=== PATIENT | male | born 1965 | race Caucasian/White ===

== ENCOUNTER 2016-12-12 12:50 | Emergency (ER) | payer BC ==
[2016-12-12 12:25] LABS: BASOPHILS 0.3 %; BASOPHILS ABSOLUTE 0.02 10/3/uL (0.0-0.16); EOSINOPHILS 0.9 %; EOSINOPHILS ABSOLUTE 0.07 10/3/uL (0.0-0.53); ER CBC TAT 0 Hrs 03 Mins; HEMATOCRIT 43.4 % (40.0-51.0); IMMATURE GRANULOCYTES 1.8 %; IMMATURE GRANULOCYTES ABSOLUTE 0.14 10/3/uL (0.0-0.11); LYMPHOCYTES 31.2 %; LYMPHOCYTES ABSOLUTE 2.45 10/3/uL (0.67-4.30); MEAN CORPUS HGB CONC 34.6 g/dL (32.0-36.0); MEAN CORPUSCULAR HEMOGLOB 30.7 pg (26.0-34.0); MEAN CORPUSCULAR VOLUME 88.8 fL (80-100); MEAN PLATELET VOLUME 9.2 fL (9.2-13.0); MONOCYTES 9.2 %; MONOCYTES ABSOLUTE 0.72 10/3/uL (0.21-1.20); NEUTROPHILS 56.6 %; NEUTROPHILS ABSOLUTE 4.45 10/3/uL (2.02-8.40); PLATELET COUNT 211 10/3/uL (150-400); RBC DISTRIBUTION WIDTH 12.5 % (12.0-16.0); RED CELL COUNT 4.89 10/6/uL (4.7-6.1); WHITE BLOOD CELLS 7.9 10/3/uL (4.5-10.5)
[2016-12-12 12:26] LABS: MANUAL DIFF NO %
[2016-12-12 12:29] LABS: ASCORBIC ACID (UR NOT ORDER) NEG (NEG); BILIRUBIN, URINE NEGATIVE (NEG); ER URINALYSIS TAT 0 Hrs 07 Mins; KETONE, URINE NEGATIVE (NEG); LEUKOCYTE ESTERASE(NOT OR NEG (NEG); NITRITE (URINE) NEG (NEG); WBC (NOT ORDERED) (RFLEX) < 1 (0-5)
[2016-12-12 12:41] LABS: A/G RATIO 1.2 (0.7-1.9); ALBUMIN 3.7 G/DL (3.5-5.0); ALKALINE PHOSPHATASE 57 U/L (45-117); BUN (BLOOD UREA NITROGEN) 17 MG/DL (6-23); CALCIUM, SERUM 8.6 MG/DL (8.5-10.4); CHLORIDE, SERUM 104 MMOL/L (96-112); CO2 (CARBON DIOXIDE) 28 MMOL/L (24-34); CREATININE 1.07 MG/DL (0.70-1.30); GFR AFRICAN AMERICAN 91 ML/MIN (>=60); GFR NON AFRICAN AMERICAN 79 ML/MIN (>=60); GLOBULIN 3.1 G/DL (2.5-4.1); GLUCOSE, SERUM 83 MG/DL (60-99); SGOT(AST) 11 U/L (5-40); SGPT(ALT) 28 U/L (5-65); SODIUM, SERUM 140 MMOL/L (135-148); TOTAL BILIRUBIN 0.7 MG/DL (0-1.2); TOTAL PROTEIN 6.8 G/DL (6.0-8.5)
== END 2016-12-12 13:15 | disposition home or self-care (01) ==
LOC: ER 12:50
PROVIDERS: Nurse Practitioner
DX: R19.5 Other fecal abnormalities (principal)
CPT/HCPCS: 74176; 80053; 81001; 83690; 85025; 99284

== ENCOUNTER 2016-12-19 13:10 | Emergency (ER) | payer BC ==
[2016-12-19 13:32] LABS: BASOPHILS 0.4 %; BASOPHILS ABSOLUTE 0.03 10/3/uL (0.0-0.16); EOSINOPHILS 0.8 %; EOSINOPHILS ABSOLUTE 0.06 10/3/uL (0.0-0.53); HEMATOCRIT 44.9 % (40.0-51.0); HEMOGLOBIN 16.1 g/dL (13.6-17.8); IMMATURE GRANULOCYTES 0.3 %; IMMATURE GRANULOCYTES ABSOLUTE 0.02 10/3/uL (0.0-0.11); LYMPHOCYTES 28.8 %; LYMPHOCYTES ABSOLUTE 2.12 10/3/uL (0.67-4.30); MEAN CORPUS HGB CONC 35.9 g/dL (32.0-36.0); MEAN CORPUSCULAR HEMOGLOB 31.1 pg (26.0-34.0); MEAN CORPUSCULAR VOLUME 86.7 fL (80-100); MEAN PLATELET VOLUME 9.6 fL (9.2-13.0); MONOCYTES 7.2 %; MONOCYTES ABSOLUTE 0.53 10/3/uL (0.21-1.20); NEUTROPHILS 62.5 %; PLATELET COUNT 230 10/3/uL (150-400); RBC DISTRIBUTION WIDTH 12.1 % (12.0-16.0); RED CELL COUNT 5.18 10/6/uL (4.7-6.1); WHITE BLOOD CELLS 7.4 10/3/uL (4.5-10.5)
[2016-12-19 13:34] LABS: ER CBC TAT 0 Hrs 07 Mins; MANUAL DIFF NO %
[2016-12-19 13:35] LABS: ASCORBIC ACID (UR NOT ORDER) NEG (NEG); BILIRUBIN, URINE NEGATIVE (NEG); ER URINALYSIS TAT 0 Hrs 10 Mins; KETONE, URINE TRACE MG/DL (NEG); LEUKOCYTE ESTERASE(NOT OR NEG (NEG); NITRITE (URINE) NEG (NEG); WBC (NOT ORDERED) (RFLEX) < 1 (0-5)
[2016-12-19 13:45] LABS: A/G RATIO 1.1 (0.7-1.9); ALBUMIN 4.1 G/DL (3.5-5.0); ALKALINE PHOSPHATASE 68 U/L (45-117); BUN (BLOOD UREA NITROGEN) 12 MG/DL (6-23); CALCIUM, SERUM 9.6 MG/DL (8.5-10.4); CHLORIDE, SERUM 105 MMOL/L (96-112); CO2 (CARBON DIOXIDE) 28 MMOL/L (24-34); CREATININE 1.12 MG/DL (0.70-1.30); GFR AFRICAN AMERICAN 86 ML/MIN (>=60); GFR NON AFRICAN AMERICAN 75 ML/MIN (>=60); GLOBULIN 3.8 G/DL (2.5-4.1); GLUCOSE, SERUM 81 MG/DL (60-99); POTASSIUM, SERUM 4.3 MMOL/L (3.5-5.3); SGOT(AST) 19 U/L (5-40); SGPT(ALT) 28 U/L (5-65); SODIUM, SERUM 139 MMOL/L (135-148); TOTAL BILIRUBIN 0.8 MG/DL (0-1.2); TOTAL PROTEIN 7.9 G/DL (6.0-8.5)
== END 2016-12-19 15:44 | disposition home or self-care (01) ==
LOC: ER 13:10
PROVIDERS: Emergency Medicine
DX: K59.00 Constipation, unspecified (principal)
CPT/HCPCS: 74022; 80053; 81001; 83690; 85025; 99284